=== PATIENT | female | born 1995 ===

== ENCOUNTER 2017-10-04 14:18 | Emergency (ER) | payer MEDICAID ==
[2017-10-04 15:27] LABS: URINE BILIRUBIN NEGATIVE (NEGATIVE); URINE BLOOD LARGE (NEGATIVE); URINE GLUCOSE (UA) NEGATIVE (NEGATIVE); URINE LEUKOCYTE ESTERASE TRACE Leu/uL (NEGATIVE); URINE NITRATE NEGATIVE (NEGATIVE); URINE PROTEIN 30 mg/dL (<30 mg/dL)
[2017-10-04 15:29] LABS: URINE APPEARANCE CLOUDY (CLEAR); URINE COLOR LIGHT RED (YELLOW)
[2017-10-04 15:31] LABS: URINE RBC TNTC /hpf (0-2)
[2017-10-04 15:32] LABS: URINE BACTERIA FEW (NEG); URINE WBC 0 - 2 /hpf (0-6)
--- NOTE | 2017-10-04 15:48 | ED PDOC ---
Arrival/HPI - General Chief Complaint: Flu-like Symptoms Time Seen by Provider: 10/04/17 14:22 Historian: Patient - History of Present Illness Narrative History of Present Illness (Text): 10/04/17 15:43 21yo female with no PMHx who present with 2days history of generalized bodyache , sore throat, chills, fever, vomited x 1 this morning. Did not take any medication. Denies chest pain, SOB, diaphoresis, abdominal pain, cough, sick cotnact, travel. Past Medical History - Provider Review Nursing Documentation Reviewed: Yes - Infectious Disease Hx of Infectious Diseases: None - Psychiatric Hx Substance Use: No - Surgical History Hx Section: Yes - Anesthesia Hx Anesthesia: Yes Hx Anesthesia Reactions: No Family/Social History - Physician Review Nursing Documentation Reviewed: Yes Family/Social History: Unknown Family HX Smoking Status: Never Smoked Hx Alcohol Use: No Hx Substance Use: No Allergies/Home Meds Allergies/Adverse Reactions: Allergies No Known Allergies Allergy (Verified 10/04/17 14:26) Review of Systems - Physician Review All systems were reviewed & negative as marked: Yes - Review of Systems Constitutional: Fatigue, Fevers Eyes: Normal ENT: Sore Throat Respiratory: Normal Cardiovascular: Normal Gastrointestinal: Normal Genitourinary Female: Normal Musculoskeletal: Normal Skin: Normal Neurological: Normal Endocrine: Normal Hemo/Lymphatic: Normal Psychiatric: Normal Physical Exam Vital Signs Reviewed: Yes Vital Signs Temp Pulse Resp BP Pulse Ox 10/04/17 15:51 99.5 F 111 H 17 100 10/04/17 14:43 100.2 F H 10/04/17 14:29 100.2 F H 110 H 16 119/74 99 Temperature: Febrile Blood Pressure: Normal Pulse: Regular Respiratory Rate: Normal Appearance: Positive for: Well-Appearing, Non-Toxic, Comfortable Pain Distress: None Mental Status: Positive for: Alert and Oriented X 3 - Systems Exam Head: Present: Atraumatic, Normocephalic Pupils: Present: PERRL Extroacular Muscles: Present: EOMI Conjunctiva: Present: Normal Mouth: Present: Moist Mucous Membranes Pharnyx: Present: Normal Neck: Present: Normal Range of Motion Respiratory/Chest: Present: Clear to Auscultation, Good Air Exchange. No: Respiratory Distress, Accessory Muscle Use, Wheezes, Decreased Breath Sounds, Rales, Retracting, Rhonchi Cardiovascular: Present: Regular Rate and Rhythm, Normal S1, S2. No: Murmurs Abdomen: Present: Normal Bowel Sounds. No: Tenderness, Distention, Peritoneal Signs, Rebound, Guarding, McBurney's Point Tender, Rovsing's Sign Present Back: Present: Normal Inspection Upper Extremity: Present: Normal Inspection. No: Cyanosis, Edema Lower Extremity: Present: Normal Inspection. No: Edema Neurological: Present: GCS=15, CN II-XII Intact, Speech Normal Skin: Present: Warm, Dry, Normal Color. No: Rashes Psychiatric: Present: Alert, Oriented x 3, Normal Insight, Normal Concentration Medical Decision Making ED Course and Treatment: 10/04/17 15:45 Pt in ED for stated history. Rapid flu/strep both negative Trace Leuk noted in UA, pt however don't have symptoms of UTI. Will not treat for UTI at this time PT remain tachy in ED. She will be hydrated and re evaluated Pt's have flu like symptoms. She will be DC home with Tamiflu. Advised to drink plenty of fluid. Rest and take Ibuprofen for body ache. Referred to her MD. [facility]RT ED for any new or worsening symptoms. - Lab Interpretations Lab Results: Lab Results 10/04/17 15:11: Grp A Beta Strep Ag Negative 10/04/17 14:38: Influenza Typ A,B (EIA) Negative for flu a/b 10/04/17 14:34: Urine Color Light red, Urine Appearance Cloudy, Urine pH 8.0, Ur Specific [place] 1.025, Urine Protein 30 H, Urine Glucose (UA) Negative, Urine Ketones Trace H, Urine Blood Large H, Urine Nitrate Negative, Urine Bilirubin Negative, Urine Urobilinogen 2.0 H, Ur Leukocyte Esterase Trace H, Urine RBC Tntc, Urine WBC 0 - 2, Ur Epithelial Cells 10 - 12, Urine Bacteria Few - Medication Orders Current Medication Orders: Sodium Chloride (Sodium Chloride 0.9%) 1,000 mls @ 999 mls/hr IV .Q1H1M STA Stop: 10/04/17 17:11 Discontinued Medications Ibuprofen (Motrin Tab) 600 mg PO STAT STA Stop: 10/04/17 14:42 Last Admin: 10/04/17 14:43 Dose: 600 mg MAR Pain/Vitals Document 10/04/17 14:43 SE (Rec: 10/04/17 14:44 SE [id number]) Pain Reassessment Is This A Pain ReAssessment? No Sleep Is patient sleeping during reassessment? No Presence of Pain Presence of Pain Yes Pain Scale Used Pain Scale Used Numeric Location Pain Location Body Site body Vitals Temperature (97.6 F-99.6 F) 100.2 F Temperature Source Oral Oseltamivir Phosphate (Tamiflu Cap) 75 mg PO ONCE STA PRN Reason: Protocol Stop: 10/04/17 15:43 Last Admin: 10/04/17 15:50 Dose: 75 mg Disposition/Present on Arrival - Present on Arrival Any Indicators Present on Arrival: No History of DVT/PE: No History of Uncontrolled Diabetes: No Urinary Catheter: No History of Decub. Ulcer: No History Surgical Site Infection Following: None - Disposition Have Diagnosis and Disposition been Completed?: Yes Diagnosis: Flu-like symptoms Disposition: HOME/ ROUTINE Disposition Time: 15:50 Patient Plan: Discharge Patient Problems: Current Active Problems Problem Status Onset Flu-like symptoms Acute Condition: STABLE Discharge Instructions (ExitCare): Viral Syndrome (ED) Additional Instructions: Follow up with your doctor Drink plenty of fluid and rest Return to ED for any new or worsening symptoms Prescriptions: Ibuprofen [Motrin Tab] 600 mg PO Q6 #20 tab Oseltamivir Phosphate [Tamiflu] 75 mg PO BID #10 capsule Referrals: Marcos Daly [Primary Care Provider] - Follow up with primary [facility] [place] - Follow up with primary Forms: [employer] (Divehi)
[2017-10-04 15:51] VITALS: O2SAT 100
[2017-10-04] MEDS ORDERED: Sodium Chloride 0.9% 1,000 ML IV STA (16:11)
[2017-10-04 16:37] LABS: ALB/GLOB RATIO 1.3 (1.1-1.8); ALBUMIN 4.1 g/dL (3.0-4.8); ALT/SGPT 25 U/L (7-56); AST/SGOT 23 U/L (14-36); BLOOD UREA NITROGEN 10 mg/dL (7-21); CALCIUM 9.5 mg/dL (8.4-10.5); GFR AFRICAN-AMERICAN > 60; GFR NON-AFRICAN AMERICAN > 60
[2017-10-04 16:52] LABS: BASO # 0.01 K/mm3 (0.0-2.0); BASO % 0.1 % (0.0-3.0); GRAN # 10.83 (1.4-6.5); GRAN % 85.2 % (50.0-68.0); HEMOGLOBIN 10.6 g/dL (12.0-16.0); MEAN CORPUSCULAR HEMOGLOBIN 21.9 pg (25.0-35.0); MEAN CORPUSCULAR HGB CONC 29.9 g/dl (31.0-37.0); MEAN PLATELET VOLUME 10.3 fl (7.0-11.0); MONO # 0.9 (0.1-0.6); MONO % 6.7 % (1.0-6.0); RBC 4.85 10^6/uL (3.5-6.1); RED CELL DISTRIBUTION WIDTH 15.6 % (11.5-14.5); WHITE BLOOD COUNT 12.7 10^3/ul (4.5-11.0)
[2017-10-04 18:22] VITALS: TEMP 100.9
[2017-10-04 19:13] VITALS: BP 120/88; PULSE 105; RESP 18
== END 2017-10-04 19:17 | disposition home or self-care (01) ==
LOC: ED 14:18
DX: J11.1 Influenza due to unidentified influenza virus with other respiratory manifestations (principal)
CPT/HCPCS: 80053; 81001; 85025; 87070; 87430; 87804; 96374; 99285; J2405; J7040

== ENCOUNTER 2017-10-06 02:43 | Emergency (ER) | payer MEDICAID ==
[2017-10-06 02:57] VITALS: RESP 18; TEMP 98.2; O2SAT 99
[2017-10-06] MEDS ORDERED: Penicillin G Benzathine 1.2 Mill Unit/2 ml Syr IM STA (03:18)
--- NOTE | 2017-10-06 03:46 | ED PDOC ---
Arrival/HPI - General Chief Complaint: ENT Problem Time Seen by Provider: 10/06/17 02:47 Historian: Patient - History of Present Illness Narrative History of Present Illness (Text): 10/06/17 03:18 21 year old female, who denies any past medical history, presents to the Emergency department complaining of sore throat discomfort and pain when swallowing for the past 3 days. Patient states she was seen the other day and treated for the flu although patient states flu test was negative at the time. Patient has been on Tamiflu with no relief. She states the Tamiflu has "upset her". Patient denies any fevers, chills, cough, chest pain, shortness of breath , abdominal pain, nausea, vomiting, diarrhea, back pain, neck pain, urinary/ bowel changes, headache, dizziness, or any other complaint. Time/Duration: Other (3 days) Symptom Onset: Gradual Symptom Course: Unchanged Activities at Onset: Light Context: Home Past Medical History - Provider Review Nursing Documentation Reviewed: Yes - Infectious Disease Hx of Infectious Diseases: None - Psychiatric Hx Substance Use: No - Surgical History Hx Section: Yes - Anesthesia Hx Anesthesia: Yes Hx Anesthesia Reactions: No Family/Social History - Physician Review Nursing Documentation Reviewed: Yes Family/Social History: No Known Family HX Smoking Status: Never Smoked Hx Alcohol Use: No Hx Substance Use: No Allergies/Home Meds Allergies/Adverse Reactions: Allergies No Known Allergies Allergy (Verified 10/04/17 14:26) Review of Systems - Physician Review All systems were reviewed & negative as marked: Yes - Review of Systems Constitutional: absent: Fevers, Other (Chills) ENT: Sore Throat Respiratory: absent: SOB, Cough Cardiovascular: absent: Chest Pain Gastrointestinal: absent: Abdominal Pain, Diarrhea, Nausea, Vomiting Genitourinary Female: absent: Dysuria, Frequency, Hematuria Musculoskeletal: absent: Back Pain, Neck Pain Neurological: absent: Headache, Dizziness Physical Exam Vital Signs Reviewed: Yes Vital Signs Temp Pulse Resp BP Pulse Ox 10/06/17 02:53 98.2 F 84 18 127/72 99 Temperature: Afebrile Blood Pressure: Normal Pulse: Regular Respiratory Rate: Normal Appearance: Positive for: Well-Appearing, Non-Toxic, Comfortable Pain Distress: None Mental Status: Positive for: Alert and Oriented X 3 - Systems Exam Head: Present: Atraumatic, Normocephalic Pupils: Present: PERRL Extroacular Muscles: Present: EOMI Conjunctiva: Present: Normal Ears: Present: Normal, NORMAL TM (TM Intact bilaterally ) Mouth: Present: Moist Mucous Membranes Pharnyx: Present: ERYTHEMA (posterior pharnyx and tonsil bilaterially ), EXUDATE (Scanty left tonsil exudate), Other (Uvula midline) Neck: Present: Normal Range of Motion, Lymphadenopathy (Cervical Lymph node tenderness) Respiratory/Chest: Present: Clear to Auscultation, Good Air Exchange. No: Respiratory Distress, Accessory Muscle Use Cardiovascular: Present: Regular Rate and Rhythm, Normal S1, S2. No: Murmurs Abdomen: Present: Normal Bowel Sounds. No: Tenderness, Distention, Peritoneal Signs Back: Present: Normal Inspection Upper Extremity: Present: Normal Inspection. No: Cyanosis, Edema Lower Extremity: Present: Normal Inspection. No: Edema Neurological: Present: GCS=15, CN II-XII Intact, Speech Normal Skin: Present: Warm, Dry, Normal Color. No: Rashes Psychiatric: Present: Alert, Oriented x 3, Normal Insight, Normal Concentration Medical Decision Making ED Course and Treatment: 10/06/17 03:18 Impression: 21 year old female presents complaining sore throat discomfort and pain when swallowing for the past 3 days. Patient was recently seen and given Tamiflu with no relief. Plan: -- Bicillin L-A- inj -- Decadron Inj -- Reassess and disposition Prior Visits: Notes and results from previous visits were reviewed. Patient was last seen in the emergency department on 10/04/17 presents to the Emergency department complaining of generalized bodyache, sore throat, chills, fever, vomited x 1 this morning. Patient was discharged. Progress Notes: - Medication Orders Current Medication Orders: Discontinued Medications Dexamethasone (Decadron Inj) 10 mg IM ONCE ONE Stop: 10/06/17 03:21 Last Admin: 10/06/17 03:33 Dose: 10 mg IM Administration Charges Document 10/06/17 03:33 JOL (Rec: 10/06/17 03:34 JOL [id number]) Injection Site MAR Injection Site Left Gluteus Sreekanth Charges for Administration # of IM Administrations 1 Penicillin G Benzathine (Bicillin L-A Inj) 1,200,000 units IM STAT STA PRN Reason: Protocol Stop: 10/06/17 03:19 Last Admin: 10/06/17 03:33 Dose: 1,200,000 units IM Administration Charges Document 10/06/17 03:33 MADELYN (Rec: 10/06/17 03:33 MADELYN [id number]) Injection Site MAR Injection Site Right Gluteus Sreekanth Charges for Administration # of IM Administrations 1 - Scribe Statement The provider has reviewed the documentation as recorded by the Guevaraibjaclyn Patel Provider Scribe Attestation: All medical record entries made by the Guevaraibjaclyn were at my direction and personally dictated by me. I have reviewed the chart and agree that the record accurately reflects my personal performance of the history, physical exam, medical decision making, and the department course for this patient. I have also personally directed, reviewed, and agree with the discharge instructions and disposition. Disposition/Present on Arrival - Present on Arrival Any Indicators Present on Arrival: No History of DVT/PE: No History of Uncontrolled Diabetes: No Urinary Catheter: No History of Decub. Ulcer: No History Surgical Site Infection Following: None - Disposition Have Diagnosis and Disposition been Completed?: Yes Diagnosis: Tonsillitis Disposition: HOME/ ROUTINE Disposition Time: 05:06 Patient Plan: Discharge Condition: STABLE Discharge Instructions (ExitCare): Tonsillitis (ED) Additional Instructions: Drink cool liquids/Rest/follow up with your doctor this week Forms: [employer] (Macedonian)
[2017-10-06 06:03] VITALS: BP 125/70; PULSE 81
== END 2017-10-06 05:21 | disposition home or self-care (01) ==
LOC: ED 02:43
DX: J03.90 Acute tonsillitis, unspecified (principal)
CPT/HCPCS: 96372; 99283; J0561; J1100